=== PATIENT | female | born 1965 | race Caucasian/White ===

== ENCOUNTER → 2020-03-30 10:10 | Outpatient (BNVA) | payer MEDICAID, OTHER, SELFPAY | PROVIDERS: PCP Internal Medicine; Visit Provider Surgery ==

== ENCOUNTER → 2020-04-04 08:14 | Outpatient (BNVA) | payer MEDICAID, OTHER, SELFPAY | PROVIDERS: PCP Internal Medicine; Visit Provider Surgery | DX: Z76.89 Persons encountering health services in other specified circumstances (principal) ==

== ENCOUNTER 2020-04-06 07:56 | Outpatient (REF) | payer OTHER, SELFPAY ==
--- NOTE | 2020-04-06 08:07 | ECG_ITS ---
Test Reason : E66.01 Blood Pressure : / mmHG Vent. Rate : 086 BPM Atrial Rate : 086 BPM P-R Int : 116 ms QRS Dur : 068 ms QT Int : 364 ms P-R-T Axes : 061 034 037 degrees QTc Int : 435 ms Normal sinus rhythm Possible Left atrial enlargement Nonspecific ST and T wave abnormality Abnormal ECG No previous ECGs available Referred By: Jose Miguel Meredith Electronically Signed By:Yobani Smith
--- NOTE | 2020-04-06 08:29 | XR_ITS ---
EXAMINATION: XR CHEST CLINICAL INFORMATION: Bariatric service evaluation. E66.01 COMPARISON: Chest radiographs 12/31/2016 TECHNIQUE: 2 views of the chest were obtained. FINDINGS: The lungs are clear. The heart is normal in size. The vascularity is normal. The costophrenic sulci are clear. The hilar and mediastinal contours and bony structures are unremarkable. XR/XR chest 2V IMPRESSION: Unremarkable examination.
[2020-04-06 09:06] LABS: MANUAL DIFF FLAG NO
[2020-04-06 09:11] LABS: Basophils Absolute Auto 0.1 X10*3/uL (0.0-0.2); Basophils Percent Auto 0.6 % (0-2); Eosinophils Absolute Auto 0.4 X10*3/uL (0.0-0.4); Eosinophils Percent Auto 3.8 % (0-4); Hematocrit 43.1 % (37-47); Hemoglobin 14.2 g/dl (12.0-16.0); Imm Gran Abs Auto 0.04 X10*3/uL (0.00-0.03); Imm Gran Pct Auto 0.4 % (0.0-0.4); Lymphocytes Absolute Auto 2.2 X10*3/uL (1.2-4.9); Lymphocytes Percent Auto 20.8 % (20-40); Mean Corpuscular HGB Conc 32.9 g/dl (31.0-35.0); Mean Platelet Volume 9.9 fL (9.4-12.3); Monocytes Absolute Auto 0.6 X10*3/uL (0.1-1.2); Monocytes Percent Auto 5.6 % (2-11); Neutrophils Absolute Auto 7.3 X10*3/uL (2.0-8.3); Neutrophils Percent Auto 68.8 % (45-73); Platelet Count 545 X10*3/uL (160-400); Red Cell Distribution Width 11.6 % (11.0-16.0); White Blood Count 10.6 X10*3/uL (4.8-10.8)
[2020-04-06 09:37] LABS: Estimated Average Glucose 157 mg/dL; Hemoglobin A1c % 7.1 %
[2020-04-06 09:39] LABS: Alanine Aminotransferase 18 U/L (0-31); Albumin Level 4.5 g/dL (3.5-5.0); Alkaline Phosphatase 69 U/L (39-117); Anion Gap 13 (12-20); Aspartate Amino Transferase 17 U/L (5-31); Bilirubin Total 0.7 mg/dL (0.0-1.0); Blood Urea Nitrogen 13 mg/dL (9-16); Calcium 9.6 mg/dL (8.4-10.2); Carbon Dioxide 30 mmol/L (22-29); Chloride 103 mmol/L (96-108); Cholesterol 246 mg/dL; Estimated Glomerular Filt Rate > 60; Glucose Random 188 mg/dL (60-115); HDL Cholesterol 45 mg/dL; LDL Cholesterol Calculated 147 mg/dl; Potassium 4.7 mmol/l (3.3-5.1); Sodium 141 mmol/L (135-145); Total Protein 7.5 g/dL (6.5-8.0); Triglycerides 273 mg/dL
[2020-04-06 10:00] LABS: Ferritin 156 ng/mL (10-250); TSH reflex Free T4 0.73 mIU/mL (0.32-4.0); Vitamin D 25-OH Total 32.8 ng/mL (>30)
[2020-04-07 09:27] LABS: Insulin Level Total 8.7 uIU/mL
[2020-04-09 15:07] LABS: Folate 19.1 ng/mL (> or = 4.0); Vitamin B12 767 pg/mL (200-900)
[2020-04-09 17:43] LABS: Calcium (PTHI) 9.9 mg/dL (8.6-10.4); PTHI 23 pg/mL (14-64)
[2020-04-11 01:22] LABS: Zinc 70 mcg/dL (60-130)
[2020-04-11 13:07] LABS: Vitamin B1 14 nmol/L (8-30)
[2020-04-12 13:57] LABS: Vitamin A 69 mcg/dL (38-98)
== END 2020-04-06 07:57 | disposition home or self-care (01) ==
LOC: HO.LAB 07:56
PROVIDERS: PCP Internal Medicine; Visit Provider Surgery
DX: E66.01 Morbid (severe) obesity due to excess calories (principal); I10 Essential (primary) hypertension; E78.5 Hyperlipidemia, unspecified; K21.9 Gastro-esophageal reflux disease without esophagitis; K76.0 Fatty (change of) liver, not elsewhere classified
CPT/HCPCS: 36415; 71046; 80053; 80061; 82306; 82607; 82728; 82746; 83036; 83525; 83970; 84425; 84443; 84590; 84630; 85025; 86140; 93005

== ENCOUNTER 2020-04-18 08:00 | Outpatient (REF) | payer OTHER, SELFPAY ==
--- NOTE | ~2020-04-18 | US_ITS ---
EXAMINATION: US COMPLETE ABDOMEN WITH LIVER ELASTOGRAPHY CLINICAL INFORMATION: Obesity COMPARISON: None. TECHNIQUE: Real-time imaging of the abdominal viscera. Noninvasive ultrasound liver fibrosis assessment is performed using Fawad ElastPQ point quantification shear wave elastography (pSWE) with a 5 MHz transducer. Multiple elastography samples are obtained. FINDINGS: PANCREAS: Normal. ABDOMINAL AORTA: The proximal, middle, and distal aortic segments are normal in caliber. INFERIOR VENA CAVA: Visualized portions are normal. LIVER: Liver echotexture is increased. The liver demonstrates normal size, contour and echogenicity. No focal lesion or intrahepatic biliary duct dilatation. The right lobe measures 16 cm in length. The left lobe measures 11 cm in length. Portal flow is normal/hepatopedal Shear wave liver elastography median stiffness is 1.5 m/s (reference: normal median stiffness is 1.3 m/s or less). IQR/median stiffness to assess sampling precision is 0.17 (reference: optimal IQR/median stiffness is 0.15 or less). GALLBLADDER: There is a 6 x 4 x 5 mm rounded echogenic density with adjacent to the gallbladder wall suggestive of a polyp. The gallbladder is otherwise normal. No gallstones are seen. There is no pericholecystic fluid. COMMON BILE DUCT: Normal in caliber measuring 0.4 cm in diameter. RIGHT KIDNEY: There is an echogenic density in the upper pole suggestive of a stone measuring 4 x 5 mm.. No hydronephrosis. No renal focal parenchymal lesions. The kidney measures 10.4 cm in maximum dimension. LEFT KIDNEY: Normal. No hydronephrosis. No renal calculi or focal parenchymal lesions. The kidney measures 9.7 cm in maximum dimension. SPLEEN: Normal. The spleen measures 9.3 cm in maximum dimension. There is a 1.4 x 1.3 x 1.6 cm splenule. FREE FLUID: None. US/US abdomen comp w elastography IMPRESSION: 1. Impression: Echogenic liver. 5 mm gallbladder wall polyp. Probable 5 mm right upper pole renal stone. 2. Liver elastography: Liver stiffness is higher than normal however compensated advanced chronic liver disease is rule out.
--- NOTE | ~2020-04-18 | FL_ITS ---
PROCEDURE: XR GI SERIES CLINICAL INFORMATION: Morbid obesity due to excessive calories. COMPARISON: None TECHNIQUE: Routine upper GI air-contrast study was performed in upright and lying position. FINDINGS: Following oral administration of thick barium and effervescent granules there is normal progression of bolus from the oral cavity through the pharynx, esophagus into stomach without any evidence of obstruction, narrowing or stricture. The course, caliber and peristalsis of the stomach, duodenal bulb and the sweep is normal. There is a small hiatal hernia with moderate gastroesophageal reflux. The mucosal pattern of stomach and duodenum is normal. FLUOROSCOPY TIME: 2.4 minutes. DOSE AREA PRODUCT: 32.050 uGy-m2 (microgray-meter squared). FL/FL upper GI series IMPRESSION: Small hiatal hernia with moderate gastroesophageal reflux. Rest of the upper GI exam is unremarkable.
== END 2020-04-18 08:01 | disposition home or self-care (01) ==
LOC: HO.US 08:00
PROVIDERS: PCP Internal Medicine; Visit Provider Surgery
DX: Z01.818 Encounter for other preprocedural examination (principal); E66.01 Morbid (severe) obesity due to excess calories; K21.9 Gastro-esophageal reflux disease without esophagitis; E78.5 Hyperlipidemia, unspecified; I10 Essential (primary) hypertension; K76.0 Fatty (change of) liver, not elsewhere classified
CPT/HCPCS: 74240; 76705; 76981

== ENCOUNTER → 2020-04-20 08:26 | Outpatient (BNVA) | payer OTHER, SELFPAY | PROVIDERS: PCP Internal Medicine; Visit Provider Dietitian, Registered ==

== ENCOUNTER 2020-04-23 08:14 | Outpatient (REF) | payer OTHER, SELFPAY ==
[2020-04-23 09:04] LABS: Estimated Average Glucose 148 mg/dL; Hemoglobin A1c % 6.8 %
[2020-04-23 09:42] LABS: Alanine Aminotransferase 17 U/L (0-31); Albumin Level 4.2 g/dL (3.5-5.0); Alkaline Phosphatase 63 U/L (39-117); Anion Gap 12 (12-20); Aspartate Amino Transferase 14 U/L (5-31); Bilirubin Total 0.5 mg/dL (0.0-1.0); Blood Urea Nitrogen 7 mg/dL (9-16); Calcium 9.4 mg/dL (8.4-10.2); Carbon Dioxide 29 mmol/L (22-29); Chloride 106 mmol/L (96-108); Cholesterol 216 mg/dL; Estimated Glomerular Filt Rate > 60; Glucose Random 178 mg/dL (60-115); HDL Cholesterol 41 mg/dL; LDL Cholesterol Calculated 122 mg/dl; Potassium 4.7 mmol/L (3.3-5.1); Sodium 142 mmol/L (135-145); Triglycerides 266 mg/dL
== END 2020-04-23 08:15 | disposition home or self-care (01) ==
LOC: HO.LAB 08:14
PROVIDERS: PCP Internal Medicine; Visit Provider Internal Medicine
DX: E11.9 Type 2 diabetes mellitus without complications (principal); E78.2 Mixed hyperlipidemia; F32.89 Other specified depressive episodes; K08.89 Other specified disorders of teeth and supporting structures
CPT/HCPCS: 36415; 80053; 80061; 83036

== ENCOUNTER → 2020-05-02 08:23 | Outpatient (BNVA) | payer OTHER, SELFPAY | PROVIDERS: PCP Internal Medicine; Visit Provider Surgery ==

== ENCOUNTER → 2020-05-16 08:01 | Outpatient (REF) | payer OTHER, SELFPAY ==
--- NOTE | ~2020-05-16 | NM_ITS ---
Lexiscan Myocardial perfusion study Indication: Shortness of breath, diabetes, obesity, assess for coronary disease ischemia Technique: The patient was brought in for a Lexiscan perfusion study on 05/16/2020 and was injected 0.4 mg of Lexiscan intravenously. Within a minute of this injection 25 mCi of sestamibi was given intravenously. Images were obtained using the SPECT gamma camera interlaced with the gating device. Images were obtained in supine position. Resting perfusion study was performed on 05/17/2020. Patient was administered 25 mCi of sestamibi intravenously at rest. Images were then obtained in supine position. Total DLP 71mGy-cm. Images were processed with the software and compared side to side in short axis, horizontal long axis and vertical long axis views. Findings: Raw acquisition was reviewed. The stress perfusion study showed no significant perfusion abnormality. Both uncorrected as well as CT attenuation corrected images were reviewed. The gated study shows normal LV systolic function with calculated LVEF of 78%. LV cavity is normal in size. The gated study shows normal wall thickening and contraction of segments. Resting study shows no significant perfusion abnormality. Gating at rest reveals normal wall motion with ejection fraction at 72%. The findings are consistent with no reversible or fixed perfusion abnormality. NM/NM brissa perf SPECT rest & str Impression: 1. Myocardial perfusion imaging study shows normal myocardial perfusion. No evidence of any ischemia or infarction. 2. Gated LVEF is > 70% during stress and rest. 3. Transient ischemic dilatation not present. EKG component of the test reported separately.
--- NOTE | 2020-05-16 08:06 | CA_ITS ---
Acquisition Time: 2020-05-16 08:31:30 Total Exercise Time: 00:02:00 Test Indications: Dyspnea Medications: SEE CHART Protocol: LEXISCAN Max HR: 148 BPM 90% of Pred: 164 BPM Max BP: 124/076 mmHG Max Work Load: 1.0 METS Pharmacological stress test using Lexiscan while sitting and kicking her feet. Pt tolerated well. Denies any anginal sx. EKG without arrhythmias, non diagnostic for ischemia. Nuclear images to follow. Normotensive response to test . Test reviewed with Dr. Wilson Referred By: Jose Miguel Meredith Overread By: Neto Desir
== END ==
LOC: HO.CARD 08:01
PROVIDERS: Visit Provider Surgery
DX: Z01.818 Encounter for other preprocedural examination (principal); R06.02 Shortness of breath; R94.31 Abnormal electrocardiogram [ECG] [EKG]; I10 Essential (primary) hypertension
CPT/HCPCS: 78452; 93017; A9500; J0280; J2785

== ENCOUNTER → 2020-05-23 08:12 | Outpatient (BNVA) | payer OTHER, SELFPAY | PROVIDERS: PCP Internal Medicine; Visit Provider Surgery ==

== ENCOUNTER 2020-06-12 08:50 | Outpatient (REF) | payer OTHER, SELFPAY ==
[2020-06-13 15:01] LABS: H Pylori Breath Test NOT DETECTED (NOT DETECTED)
== END 2020-06-12 08:51 | disposition home or self-care (01) ==
LOC: HO.LNP 08:50
PROVIDERS: PCP Internal Medicine; Visit Provider Surgery
DX: Z11.0 Encounter for screening for intestinal infectious diseases (principal)
CPT/HCPCS: 83013; 99211

== ENCOUNTER → 2020-06-13 08:33 | Outpatient (REF) | payer OTHER, SELFPAY ==
--- NOTE | 2020-06-13 08:35 | CA_ITS ---
Transthoracic Echocardiogram Patient (Last, First, Middle): Morenita Navarrete V Gender: Female Date of : 1965 Age: 55 Procedure Date: 06/13/2020 Procedure Type: Transthoracic Echocardiogram Location: OP Height: 147.32 cm Weight: 68.95 kg BSA: 1.62 m2 Heart Rate: bpm BP: 100 / 58 mmHg Identification Printing Machine Setter: Kyaw MD: Jose Miguel Meredith MD Senior [employer] Network Engineer: Lupillo Rowan MD Symptoms: R94.31 - Abnormal electrocardiogram [ECG] [EKG] Study Quality: Fair ECG Rhythm: Sinus Conclusions: - 1. Normal LV systolic function with grade 1 diastolic dysfunction 2. Mild mitral and calcification normal cardiac valvular Doppler 3. Normal RV systolic pressure 4. No pericardial effusion Findings Left Ventricle Normal left ventricular size, thickness, and systolic function. The visually estimated ejection fraction is between 60-65%. Spectral Doppler is indicative of an impaired relaxation filling pattern. E/E prime ratio is <8, consistent with normal filling pressures. Evidence suggests grade I (mild) diastolic dysfunction. Right Ventricle Normal right ventricular cavity size and systolic function. Atria Both atria are normal in size. There is no evidence of interatrial shunt. Aortic Valve Normal aortic valve structure and function. There is no aortic valve stenosis. There is no aortic valve regurgitation. Mitral Valve There is mild mitral annular calcification. There is trace mitral valve regurgitation. There is no mitral valve stenosis. Pulmonic Valve The pulmonic valve was not well visualized. Tricuspid Valve Likely normal tricuspid valve structure and function. There is mild tricuspid valve regurgitation. The right ventricular systolic pressure is normal. The right ventricular systolic pressure is 28 mmHg. Normal right atrial pressure. There is no evidence of pulmonary hypertension. Great Vessels All visible segments of the aorta are normal in size. The pulmonary artery was not well visualized. Venous The inferior vena cava is normal in size and collapses greater than 50% with inspiration. Pericardium/Pleural There is no evidence of pericardial effusion. Prior Study Comparison No prior study available for comparison. Measurements 2D Linear Measurements RVIDd: 2.49 RVIDd Index: 1.54 IVSd: 0.93 0.6-0.9/0.6-1.0 cm LVIDd: 3.96 3.9-5.3/4.2-5.9 cm LVIDd Index: 2.44 2.4-3.2/2.2-3.1 cm/m2 LVIDs: 2.51 2.0-3.6 cm LVPWd: 0.91 0.7-1.1 cm Ao Root: 2.50 2.1-3.5 cm LA Diam: 3.00 2.7-3.8/3.0-4.0 cm LAIDs Index: 1.85 1.5-2.3 cm/m2 LV Mass: 138.96 67-162/88-224 g LV Mass Index: 85.78 43-95/49-115 g/m2 LVOT Diam: 2.00 3.0+(-)1.3 cm 2D Systolic Function EF 4C: 58.70 >55% EF 2C: 67.30 >55% EF BiP: 63.00 >55% Mitral Valve MV Pk E: 0.52 MV PK A: 0.53 MV Decel Time: 190.00 E/A: 1.00 E'Lateral: 12.00 E'Medial: 9.28 E/E' Med: 5.60 E/E' Lat: 4.30 Aortic Valve AoV Pk Juancarlos: 1.38 AoV Mn Juancarlos: 1.05 AoV VTI: 0.25 AoV Pk Grad: 8.00 Aov Mn Grad: 5.00 IKE Cont.VTI: 2.82 LVOT LVOT Pk Juancarlos: 1.15 LVOT Mn Juancarlos: 0.72 LVOT VTI: 0.22 LVOT Pk Grad: 5.00 LVOT Mn Grad: 2.00 LVOT Diam: 2.00 LVOT Area: 3.14 Diastolic Function MV Pk E: 0.52 MV Pk A: 0.53 E/A: 1.00 E'Medial: 9.28 E/E' Med: 5.60 E' Laterial: 12.00 E/E' Lat: 4.30 Tricuspid Valve TR Pk Juancarlos: 2.48 TR Pk Grad: 25.00 RA Press: 3.00 RVSP: 28.00 Great Vessels Aorta Ao Root-2D: 2.50 2.0-3.7 cm Ao Asc: 2.70 2.1-3.4 cm Ao Arch: 2.50 Updated in Other Vendor System with Status of Final Lupillo Rowan MD electronically signed on 06/13/2020 5:30:24 PM with status of Final
== END ==
LOC: HO.CARD 08:33
PROVIDERS: Visit Provider Surgery
DX: Z01.818 Encounter for other preprocedural examination (principal); R06.02 Shortness of breath; I10 Essential (primary) hypertension; R94.31 Abnormal electrocardiogram [ECG] [EKG]
CPT/HCPCS: 93306

== ENCOUNTER → 2020-06-15 08:09 | Outpatient (BNVA) | payer OTHER, SELFPAY | PROVIDERS: PCP Internal Medicine; Visit Provider Surgery ==

== ENCOUNTER → 2020-06-22 11:49 | Outpatient (BNVA) | payer OTHER, SELFPAY | PROVIDERS: PCP Internal Medicine; Visit Provider Physician Assistant ==

== ENCOUNTER → 2020-06-29 10:37 | Outpatient (BNVA) | payer OTHER, SELFPAY | PROVIDERS: PCP Internal Medicine; Visit Provider Physician Assistant ==

== ENCOUNTER → 2020-07-06 11:10 | Outpatient (BNVA) | payer OTHER, SELFPAY | PROVIDERS: PCP Internal Medicine; Visit Provider Physician Assistant ==

== ENCOUNTER → 2020-07-11 08:20 | Outpatient (BNVA) | payer OTHER, SELFPAY | PROVIDERS: PCP Internal Medicine; Visit Provider Surgery ==

== ENCOUNTER → 2020-07-13 10:24 | Outpatient (BNVA) | payer OTHER, SELFPAY | PROVIDERS: PCP Internal Medicine; Visit Provider Physician Assistant ==

== ENCOUNTER → 2020-07-19 08:09 | Outpatient (BNVA) | payer OTHER, SELFPAY | PROVIDERS: PCP Internal Medicine; Visit Provider Dietitian, Registered | DX: E66.9 Obesity, unspecified (principal); Z68.31 Body mass index [BMI] 31.0-31.9, adult | CPT/HCPCS: 97803 ==

== ENCOUNTER → 2020-07-20 09:03 | Outpatient (BNVA) | payer OTHER, SELFPAY | PROVIDERS: PCP Internal Medicine; Visit Provider Physician Assistant ==

== ENCOUNTER → 2020-07-27 09:14 | Outpatient (BNVA) | payer OTHER, SELFPAY | PROVIDERS: PCP Internal Medicine; Visit Provider Physician Assistant ==

== ENCOUNTER 2020-07-30 08:50 | Outpatient (REF) | payer OTHER, SELFPAY ==
[2020-07-30 10:30] LABS: Alanine Aminotransferase 14 U/L (0-31); Albumin Level 4.2 g/dL (3.5-5.0); Alkaline Phosphatase 65 U/L (39-117); Anion Gap 12 (12-20); Aspartate Amino Transferase 14 U/L (5-31); Bilirubin Total 0.5 mg/dL (0.0-1.0); Blood Urea Nitrogen 10 mg/dL (9-16); Calcium 9.8 mg/dL (8.4-10.2); Carbon Dioxide 28 mmol/L (22-29); Chloride 103 mmol/L (96-108); Cholesterol 208 mg/dL; Estimated Glomerular Filt Rate > 60; Glucose Random 143 mg/dL (60-115); HDL Cholesterol 47 mg/dL; LDL Cholesterol Calculated 121 mg/dl; Potassium 4.6 mmol/L (3.3-5.1); Sodium 138 mmol/L (135-145); Triglycerides 204 mg/dL
[2020-07-30 10:44] LABS: Estimated Average Glucose 140 mg/dL; Hemoglobin A1c % 6.5 %
[2020-07-30 11:02] LABS: Thyroid Stimulating Hormone 0.52 uIU/mL (0.32-4.0)
== END 2020-07-30 08:51 | disposition home or self-care (01) ==
LOC: HO.LAB 08:50
PROVIDERS: PCP Internal Medicine; Visit Provider Internal Medicine
DX: E11.9 Type 2 diabetes mellitus without complications (principal); E78.2 Mixed hyperlipidemia; F33.41 Major depressive disorder, recurrent, in partial remission; J45.909 Unspecified asthma, uncomplicated
CPT/HCPCS: 36415; 80053; 80061; 83036; 84443

== ENCOUNTER → 2020-08-01 08:27 | Outpatient (BNVA) | payer OTHER, SELFPAY | PROVIDERS: PCP Internal Medicine; Visit Provider Surgery ==

== ENCOUNTER → 2020-08-03 09:08 | Outpatient (BNVA) | payer OTHER, SELFPAY | PROVIDERS: PCP Internal Medicine; Visit Provider Physician Assistant ==

== ENCOUNTER → 2020-08-10 08:53 | Outpatient (BNVA) | payer OTHER, SELFPAY | PROVIDERS: PCP Internal Medicine; Visit Provider Physician Assistant ==

== ENCOUNTER → 2020-08-17 09:31 | Outpatient (BNVA) | payer OTHER, SELFPAY | PROVIDERS: PCP Internal Medicine; Visit Provider Physician Assistant ==

== ENCOUNTER → 2020-08-24 09:25 | Outpatient (BNVA) | payer OTHER, SELFPAY | PROVIDERS: PCP Internal Medicine; Visit Provider Physician Assistant ==

== ENCOUNTER → 2020-08-27 08:11 | Outpatient (BNVA) | payer OTHER, SELFPAY | PROVIDERS: PCP Internal Medicine; Visit Provider Dietitian, Registered | DX: E66.01 Morbid (severe) obesity due to excess calories (principal); Z68.31 Body mass index [BMI] 31.0-31.9, adult | CPT/HCPCS: 97803 ==

== ENCOUNTER → 2020-08-31 09:38 | Outpatient (BNVA) | payer OTHER, SELFPAY | PROVIDERS: PCP Internal Medicine; Visit Provider Physician Assistant ==

== ENCOUNTER → 2020-09-07 09:13 | Outpatient (BNVA) | payer OTHER, SELFPAY | PROVIDERS: PCP Internal Medicine; Visit Provider Physician Assistant ==

== ENCOUNTER → 2020-09-21 08:51 | Outpatient (BNVA) | payer OTHER, SELFPAY | PROVIDERS: PCP Internal Medicine; Visit Provider Physician Assistant ==

== ENCOUNTER → 2020-09-28 09:47 | Outpatient (BNVA) | payer OTHER, SELFPAY | PROVIDERS: PCP Internal Medicine; Visit Provider Physician Assistant ==

== ENCOUNTER → 2020-10-02 08:12 | Outpatient (BNVA) | payer OTHER, SELFPAY | PROVIDERS: PCP Internal Medicine; Visit Provider Dietitian, Registered ==

== ENCOUNTER → 2020-10-19 10:34 | Outpatient (BNVA) | payer OTHER, SELFPAY | PROVIDERS: PCP Internal Medicine; Visit Provider Physician Assistant ==

== ENCOUNTER → 2020-10-26 10:22 | Outpatient (BNVA) | payer OTHER, SELFPAY | PROVIDERS: PCP Internal Medicine; Visit Provider Surgery ==

== ENCOUNTER → 2020-11-07 09:04 | Outpatient (BNVA) | payer OTHER, SELFPAY | PROVIDERS: PCP Internal Medicine; Visit Provider Dietitian, Registered | DX: E66.9 Obesity, unspecified (principal); E11.8 Type 2 diabetes mellitus with unspecified complications | CPT/HCPCS: 97803 ==

== ENCOUNTER 2020-11-13 12:14 | Outpatient (REF) | payer OTHER, SELFPAY ==
[2020-11-13 13:36] LABS: MANUAL DIFF FLAG NO
[2020-11-13 13:44] LABS: Basophils Absolute Auto 0.1 X10*3/uL (0.0-0.2); Basophils Percent Auto 0.5 % (0-2); Eosinophils Absolute Auto 0.2 X10*3/uL (0.0-0.4); Eosinophils Percent Auto 2.2 % (0-4); Hematocrit 40.8 % (37-47); Hemoglobin 13.7 g/dl (12.0-16.0); Imm Gran Abs Auto 0.03 X10*3/uL (0.00-0.03); Imm Gran Pct Auto 0.3 % (0.0-0.4); Lymphocytes Absolute Auto 2.5 X10*3/uL (1.2-4.9); Lymphocytes Percent Auto 23.2 % (20-40); Mean Corpuscular HGB Conc 33.6 g/dl (31.0-35.0); Mean Corpuscular Hemoglobin 29.6 pg (27.0-33.0); Mean Corpuscular Volume 88.1 fL (80-98); Mean Platelet Volume 10.2 fL (9.4-12.3); Monocytes Absolute Auto 0.7 X10*3/uL (0.1-1.2); Monocytes Percent Auto 6.9 % (2-11); Neutrophils Absolute Auto 7.2 X10*3/uL (2.0-8.3); Neutrophils Percent Auto 66.9 % (45-73); Platelet Count 526 X10*3/uL (160-400); Red Blood Count 4.63 X10*6/uL (4.20-5.50); Red Cell Distribution Width 11.7 % (11.0-16.0); White Blood Count 10.8 X10*3/uL (4.8-10.8)
[2020-11-13 14:10] LABS: Estimated Average Glucose 140 mg/dL; Hemoglobin A1c % 6.5 %
[2020-11-13 14:34] LABS: Alanine Aminotransferase 12 U/L (0-31); Albumin Level 4.4 g/dL (3.5-5.0); Alkaline Phosphatase 68 U/L (39-117); Anion Gap 13 (12-20); Aspartate Amino Transferase 14 U/L (5-31); Bilirubin Total 0.3 mg/dL (0.0-1.0); Blood Urea Nitrogen 9 mg/dL (9-16); Calcium 10.1 mg/dL (8.4-10.2); Carbon Dioxide 27 mmol/L (22-29); Chloride 104 mmol/L (96-108); Cholesterol 206 mg/dL; Estimated Glomerular Filt Rate > 60; Glucose Random 114 mg/dL (60-115); HDL Cholesterol 46 mg/dL; LDL Cholesterol Calculated 115 mg/dl; Potassium 4.4 mmol/L (3.3-5.1); Sodium 140 mmol/L (135-145); Total Protein 7.4 g/dL (6.5-8.0); Triglycerides 228 mg/dL
[2020-11-13 14:49] LABS: Creatinine Urine 34.98 mg/dL; Microalbumin Urine < 5.0 mg/L
== END 2020-11-13 12:15 | disposition home or self-care (01) ==
LOC: HO.LAB 12:14
PROVIDERS: PCP Internal Medicine; Visit Provider Internal Medicine
DX: E11.9 Type 2 diabetes mellitus without complications (principal); E78.2 Mixed hyperlipidemia; F33.41 Major depressive disorder, recurrent, in partial remission; J45.902 Unspecified asthma with status asthmaticus
CPT/HCPCS: 36415; 80053; 80061; 82043; 83036; 85025

== ENCOUNTER → 2020-12-12 08:27 | Outpatient (BNVA) | payer OTHER, SELFPAY | PROVIDERS: PCP Internal Medicine; Visit Provider Dietitian, Registered | DX: E66.9 Obesity, unspecified (principal); Z68.31 Body mass index [BMI] 31.0-31.9, adult | CPT/HCPCS: 97803 ==

== ENCOUNTER → 2021-01-11 08:03 | Outpatient (BNVA) | payer OTHER, SELFPAY | PROVIDERS: PCP Internal Medicine; Referring Provider Surgery; Visit Provider Dietitian, Registered | DX: E66.9 Obesity, unspecified (principal); Z68.31 Body mass index [BMI] 31.0-31.9, adult | CPT/HCPCS: 97803 ==

== ENCOUNTER → 2021-02-15 08:00 | Outpatient (BNVA) | payer OTHER, SELFPAY | PROVIDERS: PCP Internal Medicine; Visit Provider Physician Assistant ==

== ENCOUNTER 2021-02-18 10:11 | Outpatient (REF) | payer OTHER, SELFPAY ==
[2021-02-18 11:34] LABS: Vitamin D 25-OH Total 32.1 ng/mL (>30)
[2021-02-18 13:05] LABS: Folate 16.1 ng/mL (> or = 4.0); Vitamin B12 535 pg/mL (200-900)
[2021-02-19 15:56] LABS: Calcium (PTHI) 10.1 mg/dL (8.6-10.4); PTHI 18 pg/mL (14-64)
[2021-02-21 13:31] LABS: Zinc 65 mcg/dL (60-130)
[2021-02-22 12:06] LABS: Vitamin B1 15 nmol/L (8-30)
[2021-02-26 13:25] LABS: Vitamin A 64 mcg/dL (38-98)
== END 2021-02-18 10:12 | disposition home or self-care (01) ==
LOC: HO.LAB 10:11
PROVIDERS: Visit Provider Physician Assistant
DX: E66.9 Obesity, unspecified (principal)
CPT/HCPCS: 36415; 82306; 82607; 82746; 83970; 84425; 84590; 84630

== ENCOUNTER 2021-03-07 13:41 | Outpatient (REF) | payer OTHER, SELFPAY ==
--- NOTE | ~2021-03-07 | XR_ITS ---
EXAMINATION: XR ELBOW, RIGHT CLINICAL INFORMATION: Right elbow pain. COMPARISON: None TECHNIQUE: AP, lateral, and oblique views of the right elbow. FINDINGS: A 3 mm well-corticated ossific body is projected over the anterior (olecranon fossa) portion of the joint space. This finding appears to reside over the ulnar aspect of the joint space on the AP view. No joint effusion is identified. The radial head is intact. A 1 mm well-corticated calcification/ossification is noted in the region of the ulnar aspect of the radial head and may represent dystrophic calcification within the annular ligament. No arthropathic changes identified. XR/XR elbow RT min 3V IMPRESSION: *Findings suspicious for a 3 mm well-corticated free intra-articular ossific body along the anterior ulnar aspect of the elbow joint. *1 mm dystrophic calcification within the ulnar aspect of the annular ligament suspicious for underlying on a annular ligament injury. *No joint effusion.
[2021-03-07 14:35] LABS: Estimated Average Glucose 157 mg/dL; Hemoglobin A1c % 7.1 %
[2021-03-07 14:36] LABS: Alanine Aminotransferase 18 U/L (0-31); Albumin Level 4.2 g/dL (3.5-5.0); Alkaline Phosphatase 69 U/L (39-117); Anion Gap 10 (12-20); Aspartate Amino Transferase 13 U/L (5-31); Bilirubin Total 0.2 mg/dL (0.0-1.0); Blood Urea Nitrogen 12 mg/dL (9-16); Calcium 9.9 mg/dL (8.4-10.2); Carbon Dioxide 28 mmol/L (22-29); Chloride 104 mmol/L (96-108); Estimated Glomerular Filt Rate > 60; Glucose Random 145 mg/dL (60-115); Potassium 4.4 mmol/L (3.3-5.1); Sodium 138 mmol/L (135-145); Total Protein 7.4 g/dL (6.5-8.0)
== END 2021-03-07 13:42 | disposition home or self-care (01) ==
LOC: HO.XRAY 13:41
PROVIDERS: PCP Internal Medicine; Visit Provider Internal Medicine
DX: Z00.00 Encounter for general adult medical examination without abnormal findings (principal); M25.521 Pain in right elbow; E11.9 Type 2 diabetes mellitus without complications; E78.2 Mixed hyperlipidemia; F33.42 Major depressive disorder, recurrent, in full remission; I10 Essential (primary) hypertension
CPT/HCPCS: 36415; 73080; 80053; 83036

== ENCOUNTER → 2021-03-11 13:22 | Outpatient (BNVA) | payer OTHER, SELFPAY | PROVIDERS: PCP Internal Medicine; Visit Provider Physician Assistant | DX: E66.9 Obesity, unspecified (principal); K44.9 Diaphragmatic hernia without obstruction or gangrene; E78.5 Hyperlipidemia, unspecified; I10 Essential (primary) hypertension; Z68.30 Body mass index [BMI] 30.0-30.9, adult | CPT/HCPCS: 99212 ==

== ENCOUNTER → 2021-03-21 08:09 | Outpatient (BNVA) | payer OTHER, SELFPAY | PROVIDERS: PCP Internal Medicine; Visit Provider Surgery ==

== ENCOUNTER → 2021-03-22 09:56 | Outpatient (BNVA) | payer OTHER, SELFPAY | PROVIDERS: PCP Internal Medicine; Referring Provider Internal Medicine; Visit Provider Physician Assistant Surgical ==

== ENCOUNTER → 2021-03-25 08:55 | Outpatient (BNVA) | payer OTHER, SELFPAY | PROVIDERS: PCP Internal Medicine; Referring Provider Physician Assistant; Visit Provider Dietitian, Registered | DX: E66.9 Obesity, unspecified (principal); Z68.31 Body mass index [BMI] 31.0-31.9, adult | CPT/HCPCS: 97803 ==

== ENCOUNTER → 2021-05-13 08:06 | Outpatient (BNVA) | payer OTHER, SELFPAY | PROVIDERS: PCP Internal Medicine; Visit Provider Dietitian, Registered ==

== ENCOUNTER → 2021-05-15 08:13 | Outpatient (BNVA) | payer OTHER, SELFPAY | PROVIDERS: PCP Internal Medicine; Visit Provider Dietitian, Registered | DX: E66.01 Morbid (severe) obesity due to excess calories (principal); Z68.32 Body mass index [BMI] 32.0-32.9, adult; E11.9 Type 2 diabetes mellitus without complications; Z71.3 Dietary counseling and surveillance | CPT/HCPCS: 97803 ==

== ENCOUNTER → 2021-05-21 08:12 | Outpatient (BNVA) | payer OTHER, SELFPAY | PROVIDERS: PCP Internal Medicine; Visit Provider Physician Assistant | DX: E66.9 Obesity, unspecified (principal); I10 Essential (primary) hypertension; E78.5 Hyperlipidemia, unspecified | CPT/HCPCS: Q3014 ==

== ENCOUNTER 2021-06-28 08:09 | Outpatient (REF) | payer OTHER, SELFPAY ==
[2021-06-28 08:29] LABS: MANUAL DIFF FLAG NO
[2021-06-28 09:12] LABS: Basophils Absolute Auto 0.1 X10*3/uL (0.0-0.2); Basophils Percent Auto 0.7 % (0-2); Eosinophils Absolute Auto 0.3 X10*3/uL (0.0-0.4); Eosinophils Percent Auto 2.8 % (0-4); Hematocrit 41.6 % (37.0-47.0); Imm Gran Abs Auto 0.02 X10*3/uL (0.00-0.03); Imm Gran Pct Auto 0.2 % (0.0-0.4); Lymphocytes Absolute Auto 2.3 X10*3/uL (1.2-4.9); Lymphocytes Percent Auto 22.5 % (20-40); Mean Corpuscular HGB Conc 33.7 g/dl (31.0-35.0); Mean Corpuscular Hemoglobin 29.2 pg (27.0-33.0); Mean Corpuscular Volume 86.8 fL (80.0-98.0); Mean Platelet Volume 10.3 fL (9.4-12.3); Monocytes Absolute Auto 0.7 X10*3/uL (0.1-1.2); Monocytes Percent Auto 6.9 % (2-11); Neutrophils Absolute Auto 6.8 x10*3/uL (2.0-8.3); Neutrophils Percent Auto 66.9 % (45-73); Platelet Count 485 X10*3/uL (160-400); Red Blood Count 4.79 X10*6/uL (4.20-5.50); Red Cell Distribution Width 11.7 % (11.0-16.0); White Blood Count 10.2 X10*3/uL (4.8-10.8)
[2021-06-28 09:33] LABS: Alanine Aminotransferase 11 U/L (0-31); Albumin Level 4.1 g/dL (3.5-5.0); Alkaline Phosphatase 77 U/L (39-117); Anion Gap 11 (12-20); Aspartate Amino Transferase 12 U/L (5-31); Bilirubin Total 0.4 mg/dL (0.0-1.0); Blood Urea Nitrogen 13 mg/dL (9-16); Carbon Dioxide 29 mmol/L (22-29); Chloride 101 mmol/L (96-108); Cholesterol 258 mg/dL; Estimated Glomerular Filt Rate > 60; Glucose Random 244 mg/dL (60-115); HDL Cholesterol 43 mg/dL; LDL Cholesterol Calculated 153 mg/dl; Potassium 5.1 mmol/L (3.3-5.1); Sodium 136 mmol/L (135-145); Total Protein 7.2 g/dL (6.5-8.0); Triglycerides 312 mg/dL
[2021-06-28 09:35] LABS: Microalbumin Urine < 5.0 mg/L
[2021-06-28 10:11] LABS: Estimated Average Glucose 194 mg/dL; Hemoglobin A1c % 8.4 %
== END 2021-06-28 08:10 | disposition home or self-care (01) ==
LOC: HO.LAB 08:09
PROVIDERS: PCP Internal Medicine; Visit Provider Internal Medicine
DX: E11.9 Type 2 diabetes mellitus without complications (principal); E78.2 Mixed hyperlipidemia; I10 Essential (primary) hypertension
CPT/HCPCS: 36415; 80053; 80061; 82043; 83036; 85025

== ENCOUNTER → 2021-07-19 08:13 | Outpatient (BNVA) | payer OTHER, SELFPAY | PROVIDERS: PCP Internal Medicine; Referring Provider Physician Assistant; Visit Provider Dietitian, Registered | DX: E66.9 Obesity, unspecified (principal); Z68.31 Body mass index [BMI] 31.0-31.9, adult | CPT/HCPCS: 97803 ==

== ENCOUNTER 2021-11-13 08:42 | Outpatient (REF) | payer OTHER, SELFPAY ==
[2021-11-13 08:56] LABS: MANUAL DIFF FLAG NO
[2021-11-13 09:06] LABS: Basophils Absolute Auto 0.1 X10*3/uL (0.0-0.2); Basophils Percent Auto 0.7 % (0-2); Eosinophils Absolute Auto 0.2 X10*3/uL (0.0-0.4); Eosinophils Percent Auto 2.2 % (0-4); Hematocrit 40.1 % (37.0-47.0); Hemoglobin 13.5 g/dl (12.0-16.0); Imm Gran Abs Auto 0.04 X10*3/uL (0.00-0.03); Imm Gran Pct Auto 0.5 % (0.0-0.4); Lymphocytes Absolute Auto 2.1 X10*3/uL (1.2-4.9); Lymphocytes Percent Auto 23.8 % (20-40); Mean Corpuscular HGB Conc 33.7 g/dl (31.0-35.0); Mean Corpuscular Hemoglobin 29.4 pg (27.0-33.0); Mean Corpuscular Volume 87.4 fL (80.0-98.0); Mean Platelet Volume 9.3 fL (9.4-12.3); Monocytes Absolute Auto 0.5 X10*3/uL (0.1-1.2); Monocytes Percent Auto 5.7 % (2-11); Neutrophils Absolute Auto 5.8 x10*3/uL (2.0-8.3); Neutrophils Percent Auto 67.1 % (45-73); Platelet Count 522 X10*3/uL (160-400); Red Blood Count 4.59 X10*6/uL (4.20-5.50); Red Cell Distribution Width 11.5 % (11.0-16.0); White Blood Count 8.7 X10*3/uL (4.8-10.8)
[2021-11-13 09:19] LABS: Estimated Average Glucose 197 mg/dL; Hemoglobin A1c % 8.5 %
[2021-11-13 09:36] LABS: Alanine Aminotransferase 19 U/L (0-31); Alkaline Phosphatase 74 U/L (39-117); Anion Gap 14 (12-20); Aspartate Amino Transferase 17 U/L (5-31); Bilirubin Total 0.3 mg/dL (0.0-1.0); Blood Urea Nitrogen 9 mg/dL (9-16); Calcium 9.2 mg/dL (8.4-10.2); Carbon Dioxide 27 mmol/L (22-29); Chloride 103 mmol/L (96-108); Cholesterol 257 mg/dL; Estimated Glomerular Filt Rate > 60; Glucose Random 199 mg/dL (60-115); HDL Cholesterol 45 mg/dL; LDL Cholesterol Calculated 152 mg/dl; Sodium 139 mmol/L (135-145); Total Protein 6.9 g/dL (6.5-8.0); Triglycerides 302 mg/dL
[2021-11-13 09:59] LABS: Thyroid Stimulating Hormone 0.84 uIU/mL (0.32-4.0)
[2021-11-13 10:09] LABS: Vitamin B12 407 pg/mL (200-900)
[2021-11-13 10:47] LABS: Creatinine Urine 97.05 mg/dL; Microalbumin Urine < 5.0 mg/L
== END 2021-11-13 08:43 | disposition home or self-care (01) ==
LOC: HO.LAB 08:42
PROVIDERS: PCP Internal Medicine; Visit Provider Internal Medicine
DX: E11.65 Type 2 diabetes mellitus with hyperglycemia (principal); E78.00 Pure hypercholesterolemia, unspecified; I10 Essential (primary) hypertension; M54.50 Low back pain, unspecified
CPT/HCPCS: 36415; 80053; 80061; 82043; 82607; 83036; 84443; 85025

== ENCOUNTER 2021-11-13 11:03 | Emergency (ER) | payer OTHER, SELFPAY ==
--- NOTE | ~2021-11-13 | XR_ITS ---
EXAMINATION: XR CHEST CLINICAL INFORMATION: Dyspnea and chest pressure COMPARISON: None TECHNIQUE: 2 views of the chest were obtained. FINDINGS: No significant abnormality is noted involving the heart, lungs, mediastinum, bony thorax or soft tissues. XR/XR chest 2V IMPRESSION: Unremarkable examination.
--- NOTE | ~2021-11-13 | CT_ITS ---
EXAMINATION: CT head/brain wo IV con CLINICAL INFORMATION: Reason for Exam headache COMPARISON: None. TECHNIQUE: Contiguous axial imaging was performed from the skull base to vertex without intravenous contrast. Sagittal and coronal reformatted images were obtained. This CT examination was performed using dose optimization techniques as appropriate, variously including the following: * Automated exposure control * Adjustment of mA and/or kV according to patient size (this includes techniques or standardized protocols for targeted exams where dose is matched to indication/reason for exam; i.e. extremities or head) Use of iterative reconstruction technique DLP: 631 mGy-cm FINDINGS: No acute osseous or soft tissue abnormality. 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 Degenerative changes of the right greater than left temporomandibular joints. The mastoid air cells and visualized portions of the paranasal sinuses are well aerated. There is no evidence of acute intracranial hemorrhage or territorial infarction. Bilateral basal ganglia mineralization. No abnormal mass effect or midline shift is seen. Lang to white matter differentiation is well preserved. No extra-axial fluid collections are identified. Partially empty sella. No hydrocephalus. No significant volume loss. There is no abnormal attenuation within the brain parenchyma. CT/CT head/brain wo IV con IMPRESSION: No acute intracranial abnormality including hemorrhage, mass effect, hydrocephalus, or acute territorial edematous infarction.
[2021-11-13 11:10] VITALS: BP 150/80; PULSE 94
[2021-11-13 12:00] VITALS: BP 135/81; PULSE 78; RESP 16; TEMP 36.2; O2SAT 99; BMI 31.7
--- NOTE | 2021-11-13 12:03 | ECG_ITS ---
Test Reason : chest pressure Blood Pressure : / mmHG Vent. Rate : 079 BPM Atrial Rate : 079 BPM P-R Int : 126 ms QRS Dur : 070 ms QT Int : 356 ms P-R-T Axes : 035 004 021 degrees QTc Int : 408 ms Normal sinus rhythm Nonspecific ST abnormality Abnormal ECG When compared with ECG of 06-APR-2020 08:25, No significant change was found Referred By: Generic ED Physician Electronically Signed By:YARIEL FAY
[2021-11-13 12:24] LABS: MANUAL DIFF FLAG NO
[2021-11-13 12:28] LABS: Basophils Absolute Auto 0.1 X10*3/uL (0.0-0.2); Basophils Percent Auto 0.5 % (0-2); Eosinophils Absolute Auto 0.2 X10*3/uL (0.0-0.4); Eosinophils Percent Auto 1.6 % (0-4); Hematocrit 40.1 % (37.0-47.0); Hemoglobin 13.5 g/dl (12.0-16.0); Imm Gran Abs Auto 0.03 X10*3/uL (0.00-0.03); Imm Gran Pct Auto 0.3 % (0.0-0.4); Lymphocytes Absolute Auto 2.4 X10*3/uL (1.2-4.9); Lymphocytes Percent Auto 21.3 % (20-40); Mean Corpuscular HGB Conc 33.7 g/dl (31.0-35.0); Mean Corpuscular Hemoglobin 29.4 pg (27.0-33.0); Mean Corpuscular Volume 87.4 fL (80.0-98.0); Mean Platelet Volume 9.4 fL (9.4-12.3); Monocytes Absolute Auto 0.7 X10*3/uL (0.1-1.2); Monocytes Percent Auto 6.5 % (2-11); Neutrophils Absolute Auto 7.9 x10*3/uL (2.0-8.3); Neutrophils Percent Auto 69.8 % (45-73); Platelet Count 524 X10*3/uL (160-400); Red Blood Count 4.59 X10*6/uL (4.20-5.50); Red Cell Distribution Width 11.6 % (11.0-16.0); White Blood Count 11.3 X10*3/uL (4.8-10.8)
[2021-11-13 12:46] LABS: COVID-19 Test Negative (Negative)
[2021-11-13 12:50] LABS: Anion Gap 16 (12-20); Blood Urea Nitrogen 9 mg/dL (9-16); Calcium 9.5 mg/dL (8.4-10.2); Carbon Dioxide 27 mmol/L (22-29); Chloride 102 mmol/L (96-108); Creatinine Clr Calc Pharmacy 67.2; Estimated Glomerular Filt Rate > 60; Glucose Random 185 mg/dL (60-115); Potassium 4.7 mmol/L (3.3-5.1); Sodium 140 mmol/L (135-145)
[2021-11-13 12:56] LABS: Troponin-I High Sensitivity < 3.5 ng/L (<3.5-17.0)
--- NOTE | 2021-11-13 18:18 | ED.GENADULT ---
HPI - General Adult General Chief complaint: General Medical Stated complaint: DIFF BREATH X'S 20M,ANDERSON,84% RA, 99% ON 3LPM PER EMS Time Seen by Provider: 11/13/21 18:17 Source: patient and EMS Mode of arrival: EMS Limitations: no limitations History of Present Illness HPI narrative: 56-year-old female Greek-speaking came in by ambulance for evaluation of headache and shortness of breath. Patient had an appointment with her doctor today for general physical, has been feeling anxious and nervous for the past few weeks due to stressful life, patient filled a sudden onset of headache this morning started around 11:00 o'clock in the morning followed by difficulty breathing and feeling anxious, patient also felt chest tightness, had her to call EMS for further evaluation in the emergency department, in the ED patient now feels better back to normal baseline patient is asking for medication to help her anxiety. Headache is much better than this morning, no CP, no SOB, no sickness symptoms, no sick contact, no coughing, no history of smoking or lung disease. As per EMS patient had O2 sat of 84% on room air 1 time breathing during transportation that improved to 99% on supplemental oxygen, no hypoxia was noted in the ED Related Data Home Medications Medication Instructions Recorded Confirmed amlodipine 2.5 mg-atorvastatin 10 1 tab PO DAILY 04/04/20 03/11/21 mg tablet atorvastatin 80 mg tablet 80 mg PO DAILY 04/04/20 03/11/21 glimepiride 2 mg tablet 2 mg PO DAILY 04/04/20 03/11/21 ibuprofen 600 mg tablet 600 mg PO Q8H PRN 04/04/20 03/11/21 lisinopril 10 mg tablet 10 mg PO DAILY 04/04/20 03/11/21 metformin 1,000 mg tablet 1,000 mg PO DAILY 04/04/20 03/11/21 montelukast 10 mg tablet 10 mg PO DAILY 04/04/20 03/11/21 omeprazole 20 mg capsule,delayed 20 mg PO DAILY 04/04/20 03/11/21 release rosuvastatin 40 mg tablet 40 mg PO DAILY 04/04/20 03/11/21 sertraline 50 mg tablet 50 mg PO DAILY 04/04/20 03/11/21 albuterol sulfate 90 mcg/actuation 2 puff inhalation QID 02/15/21 03/11/21 aerosol inhaler (ProAir HFA) multivitamin 1 tab PO DAILY 02/15/21 03/11/21 Previous Rx's Medication Instructions Recorded blood pressure monitor #1 ea 07/11/20 Allergies Allergy/AdvReac Type Severity Reaction Status Date / Time seafood Allergy Severe Anaphylaxis Verified 03/11/21 13:27 Penicillins [PENICILLINS] Allergy Unknown UNKNOWN Verified 03/11/21 13:27 Review of Systems Review of Systems: All other systems are reviewed and are negative Constitutional: Reports as per HPI and Reports no additional constitutional complaints Eyes: Reports as per HPI and Reports no additional eye complaints Reports system reviewed and no additional complaints, except as documented Cardiovascular: Reports as per HPI and Reports no additional cardiovascular complaints Respiratory: Reports as per HPI and Reports no additional respiratory complaints Gastrointestinal: Reports as per HPI and Reports no additional gastrointestinal complaints Genitourinary: Reports no additional female genitourinary complaints Musculoskeletal: Reports no additional musculoskeletal complaints Skin/Breast: Reports system reviewed and no additional complaints, except as docu Psychiatric: Reports no additional psychiatric complaints Endocrine: Reports no additional endocrine complaints Hematologic/Lymphatic: Reports no additional hematologic/lymphatic complaints Allergic/Immunologic: Reports no additional allergic/immunologic complaints Reports system reviewed and no additional complaints, except as documented and Reports Abnormal speech present [facility] Past Medical History Medical History Asthma Depression DJD (degenerative joint disease) GERD (gastroesophageal reflux disease) Hyperlipidemia Hypertension Morbid obesity Non-insulin dependent diabetes mellitus Steatosis, liver Surgical History History of surgery of head Hx of hysterectomy Family History Family History Mother Cancer Father Asthma Arthritis Mental problems Sister No problems noted. Sister No problems noted. Sister Diabetes Asthma Sister Morbidly obese Brother No problems noted. Brother Diabetes Hypertension Son No problems noted. Son No problems noted. Daughter No problems noted. Daughter No problems noted. Social History Social History Alcohol intake: never Patient Tobacco Use Status: Never used Tobacco Advance Directives: No Advance Directives Information Provided: Yes Physical Exam ED Vital Signs: Vital Signs - 24 hr 11/13/21 12:00 11/13/21 19:14 Temperature 97.2 F 98.3 F Pulse Rate 78 83 Respiratory Rate 16 16 Blood Pressure 135/81 106/74 Pulse Oximetry 99 98 Oxygen Delivery Method Room Air Room Air BMI result Body Mass Index 31.7 Vital signs have been reviewed as appeared to be correct. Blood pressure normal. Heart rate normal. Respiration rate normal. Temperature normal. Oxygen saturation normal. Appearance: Alert. Oriented X3. No acute distress. Head: Normal external exam. Normocephalic. Atraumatic. No Gonzalez signs noted. No raccoon eyes noted Eyes: PERRLA. EOMI. Conjunctiva and sclera normal. Eyelids normal. ENT: TM's Normal. Pharynx normal. Uvula midline. Moist mucous membranes. No trismus noted. No drooling noted. No muffled voice noted. Neck: Normal inspection. Neck supple. FROM. No adenopathy. Thyroid Normal. No meningeal signs. No neck mass noted. CVS: Normal heart rate and rhythm. Heart sound normal. No murmurs noted. Pulses normal throughout. Respiratory: No respiratory distress. Painless inspiration. Breath sounds normal. No wheezes/rales/rhonchi noted. Chest nontender. No accessory muscle usage noted or decreased air movement noted. Abdomen: Soft and nontender. Bowel sounds normal in all 4 quadrants. No distention noted. No organomegaly noted. No visible injury noted. Back: No CVA tenderness. Full range of motion noted. Skin: Skin warm and dry. Normal skin color. Normal skin turgor. No rashes/lesions/lacerations noted. Extremities: No lower extremity edema. Extremities exhibit normal range of motion. Extremities nontender. Neuro: Oriented X 3. Cranial nerve exam: II-XII are grossly intact No motor deficit. No sensory deficit. Reflexes normal. Patient Orientation: Person, Place, Time and Situation Level of Consciousness: Awake, Appropriate and Alert Patient Behavior: Appropriate, Guarded, Cooperative and Anxious Mood Description: Constricted, Blunted and Apprehensive Affect Description: Constricted, Blunted and Apprehensive Patient Cognition Impaired: No Ability to Follow Directions: Excellent Speech Pattern: Clear, Appropriate and Spontaneous Speech Memory Description: Intact, Immediate Intact and Short Term Intact Hallucinations: None Delusions: Not Present Thought Process: Intact Thought Content: positive for Intact, positive for Logical, denies Suicidal Ideation and denies Homicidal Ideation. Depressive Symptoms: Not present Judgement: Good Judgement and Insight: Intact Course Course Course Narrative: 56-year-old female came in for evaluation of sudden onset headache and difficulty breathing, symptoms has improved in the emergency department, patient has unremarkable blood workup, chest x-ray, EKG. Patient admitted that she has been going through stressful life but no depression or SI or HI patient improved with 1 mg of Ativan given in the ED. VSS, unremarkable physical and mental exam. Will reassure and discharge to follow-up with her PCP. Medical Decision Making Lab Data Lab results reviewed: Yes I reviewed the patient's lab results. Result diagrams: 11/13/21 12:17 11/13/21 12:16 Labs: Lab Results 11/13/21 11/13/21 11/13/21 Range/Units 12:16 12:17 12:17 WBC 11.3 H (4.8-10.8) X10*3/uL RBC 4.59 (4.20-5.50) X10*6/uL Hgb 13.5 (12.0-16.0) g/dl Hct 40.1 (37.0-47.0) % MCV 87.4 (80.0-98.0) fL MCH 29.4 (27.0-33.0) pg MCHC 33.7 (31.0-35.0) g/dl RDW 11.6 (11.0-16.0) % Plt Count 524 H (160-400) X10*3/uL MPV 9.4 (9.4-12.3) fL Immature Gran % (Auto) 0.3 (0.0-0.4) % Neut % (Auto) 69.8 (45-73) % Lymph % (Auto) 21.3 (20-40) % Throckmorton % (Auto) 6.5 (2-11) % Eos % (Auto) 1.6 (0-4) % Baso % (Auto) 0.5 (0-2) % Lymph # (Auto) 2.4 (1.2-4.9) X10*3/uL Throckmorton # (Auto) 0.7 (0.1-1.2) X10*3/uL Eos # (Auto) 0.2 (0.0-0.4) X10*3/uL Baso # (Auto) 0.1 (0.0-0.2) X10*3/uL Abs Immat Gran (auto) 0.03 (0.00-0.03) X10*3/uL Absolute Neuts (auto) 7.9 (2.0-8.3) x10*3/uL Absolute Nucleated RBC 0.000 (0.0-0.012) X10*3/uL Nucleated RBC % (auto) 0.0 (0.0-0.2) /100WBC D-Dimer High Sensitivty NG/ML Sodium 140 (135-145) mmol/L Potassium 4.7 (3.3-5.1) mmol/L Chloride 102 (96-108) mmol/L Carbon Dioxide 27 (22-29) mmol/L Anion Gap 16 (12-20) BUN 9 (9-16) mg/dL Creatinine 0.75 (0.5-1.4) mg/dL Estim Creat Clear Calc 67.2 Estimated GFR > 60 Random Glucose 185 H (60-115) mg/dL Calcium 9.5 (8.4-10.2) mg/dL Troponin I High Sens (<3.5-17.0) ng/L B-Natriuretic Peptide (<100) pg/mL COVID-19 ([facility]OBERTO) Negative (Negative) COVID-19 Clin Com See Note 11/13/21 11/13/21 11/13/21 Range/Units 12:17 19:19 19:19 WBC (4.8-10.8) X10*3/uL RBC (4.20-5.50) X10*6/uL Hgb (12.0-16.0) g/dl Hct (37.0-47.0) % MCV (80.0-98.0) fL MCH (27.0-33.0) pg MCHC (31.0-35.0) g/dl RDW (11.0-16.0) % Plt Count (160-400) X10*3/uL MPV (9.4-12.3) fL Immature Gran % (Auto) (0.0-0.4) % Neut % (Auto) (45-73) % Lymph % (Auto) (20-40) % Throckmorton % (Auto) (2-11) % Eos % (Auto) (0-4) % Baso % (Auto) (0-2) % Lymph # (Auto) (1.2-4.9) X10*3/uL Throckmorton # (Auto) (0.1-1.2) X10*3/uL Eos # (Auto) (0.0-0.4) X10*3/uL Baso # (Auto) (0.0-0.2) X10*3/uL Abs Immat Gran (auto) (0.00-0.03) X10*3/uL Absolute Neuts (auto) (2.0-8.3) x10*3/uL Absolute Nucleated RBC (0.0-0.012) X10*3/uL Nucleated RBC % (auto) (0.0-0.2) /100WBC D-Dimer High Sensitivty < 150 NG/ML Sodium (135-145) mmol/L Potassium (3.3-5.1) mmol/L Chloride (96-108) mmol/L Carbon Dioxide (22-29) mmol/L Anion Gap (12-20) BUN (9-16) mg/dL Creatinine (0.5-1.4) mg/dL Estim Creat Clear Calc Estimated GFR Random Glucose (60-115) mg/dL Calcium (8.4-10.2) mg/dL Troponin I High Sens < 3.5 < 3.5 (<3.5-17.0) ng/L B-Natriuretic Peptide 29 (<100) pg/mL COVID-19 ([facility]ERTO) (Negative) COVID-19 Clin Com Imaging Data CT scan - head: Attestation: I personally reviewed and interpreted this imaging study as follows: Radiologist's impression: No acute intracranial pathology. Chest x-ray: Attestation: I personally reviewed and interpreted this imaging study as follows: Radiologist's impression: No acute pathology. ECG Data Attestation: I personally reviewed and interpreted this ECG as follows: Interpretation: Normal sinus rhythm at 79 beats per minutes, normal intervals, nonspecific ST-TT changes, no change from previous EKG. Discharge Plan Discharge Clinical Impression: Anxiety Patient Disposition: Home, Self-Care Instructions: Anxiety (ED) Prescriptions: No Action metformin 1,000 mg tablet 1,000 mg PO DAILY rosuvastatin 40 mg tablet 40 mg PO DAILY sertraline 50 mg tablet 50 mg PO DAILY atorvastatin 80 mg tablet 80 mg PO DAILY montelukast 10 mg tablet 10 mg PO DAILY lisinopril 10 mg tablet 10 mg PO DAILY glimepiride 2 mg tablet 2 mg PO DAILY omeprazole 20 mg capsule,delayed release(DR/EC) 20 mg PO DAILY amlodipine-atorvastatin 2.5-10 mg tablet 1 tab PO DAILY ibuprofen 600 mg tablet 600 mg PO Q8H PRN (DME) blood pressure monitor Kit See Rx Instructions .ROUTE .MEDSUPPLY Qty: 1 0RF Rx Instructions: As directed albuterol sulfate [ProAir HFA] 90 mcg/actuation HFA aerosol inhaler 2 puff inhalation QID multivitamin Tablet 1 tab PO DAILY Referrals: Su Ambriz MD [Primary Care Provider] -
[2021-11-13 19:14] VITALS: BP 106/74; PULSE 83; RESP 16; TEMP 36.8; O2SAT 98
[2021-11-13] MEDS: LORazepam 1 MG TABLET PO (19:32)
[2021-11-13 19:36] LABS: D Dimer High Sensitivity < 150 NG/ML
[2021-11-13 19:47] LABS: B Type Natriuretic Peptide 29 pg/mL (<100); Troponin-I High Sensitivity < 3.5 ng/L (<3.5-17.0)
== END 2021-11-13 21:34 | disposition home or self-care (01) ==
PROVIDERS: Emergency Provider Emergency Medicine; PCP Internal Medicine
DX: F41.9 Anxiety disorder, unspecified (principal); R06.02 Shortness of breath; Z20.822 Contact with and (suspected) exposure to COVID-19; I10 Essential (primary) hypertension; E11.9 Type 2 diabetes mellitus without complications; E78.5 Hyperlipidemia, unspecified; J45.909 Unspecified asthma, uncomplicated; Z79.02 Long term (current) use of antithrombotics/antiplatelets; Z79.84 Long term (current) use of oral hypoglycemic drugs; Z79.899 Other long term (current) drug therapy
CPT/HCPCS: 36415; 70450; 71046; 80048; 83880; 84484; 85025; 85379; 87635; 93005; 99284

== ENCOUNTER 2022-06-30 08:51 | Outpatient (REF) | payer OTHER, SELFPAY ==
[2022-06-30 10:10] LABS: Estimated Average Glucose 131 mg/dL; Hemoglobin A1c % 6.2 %
[2022-06-30 10:45] LABS: Alanine Aminotransferase 13 U/L (0-31); Alkaline Phosphatase 69 U/L (39-117); Anion Gap 12 (12-20); Aspartate Amino Transferase 14 U/L (5-31); Bilirubin Total 0.5 mg/dL (0.0-1.0); Blood Urea Nitrogen 7 mg/dL (9-16); Calcium 9.4 mg/dL (8.4-10.2); Carbon Dioxide 28 mmol/L (22-29); Chloride 108 mmol/L (96-108); Cholesterol 227 mg/dL; Estimated Glomerular Filt Rate > 60; Glucose Random 129 mg/dL (60-115); HDL Cholesterol 42 mg/dL; LDL Cholesterol Calculated 133 mg/dl; Potassium 4.5 mmol/L (3.3-5.1); Sodium 143 mmol/L (135-145); Total Protein 6.6 g/dL (6.5-8.0); Triglycerides 263 mg/dL
== END 2022-06-30 08:52 | disposition home or self-care (01) ==
LOC: HO.LAB 08:51
PROVIDERS: PCP Internal Medicine; Visit Provider Internal Medicine
DX: E11.65 Type 2 diabetes mellitus with hyperglycemia (principal); E78.00 Pure hypercholesterolemia, unspecified; F32.9 Major depressive disorder, single episode, unspecified; I10 Essential (primary) hypertension
CPT/HCPCS: 36415; 80053; 80061; 83036

== ENCOUNTER 2022-09-29 10:48 | Outpatient (REF) | payer OTHER, SELFPAY ==
[2022-09-29 11:09] LABS: MANUAL DIFF FLAG NO
[2022-09-29 11:54] LABS: Basophils Absolute Auto 0.1 X10*3/uL (0.0-0.2); Basophils Percent Auto 0.8 % (0-2); Eosinophils Absolute Auto 0.2 X10*3/uL (0.0-0.4); Eosinophils Percent Auto 2.2 % (0-4); Hematocrit 43.7 % (37.0-47.0); Hemoglobin 14.3 g/dl (12.0-16.0); Imm Gran Abs Auto 0.02 X10*3/uL (0.00-0.03); Imm Gran Pct Auto 0.2 % (0.0-0.4); Lymphocytes Absolute Auto 2.8 X10*3/uL (1.2-4.9); Lymphocytes Percent Auto 27.7 % (20-40); Mean Corpuscular HGB Conc 32.7 g/dl (31.0-35.0); Mean Corpuscular Hemoglobin 28.7 pg (27.0-33.0); Mean Corpuscular Volume 87.8 fL (80.0-98.0); Mean Platelet Volume 9.9 fL (9.4-12.3); Monocytes Absolute Auto 0.7 X10*3/uL (0.1-1.2); Monocytes Percent Auto 7.3 % (2-11); Neutrophils Absolute Auto 6.2 x10*3/uL (2.0-8.3); Neutrophils Percent Auto 61.8 % (45-73); Platelet Count 554 X10*3/uL (160-400); Red Blood Count 4.98 X10*6/uL (4.20-5.50)
[2022-09-29 12:01] LABS: Estimated Average Glucose 180 mg/dL; Hemoglobin A1c % 7.9 %
[2022-09-29 12:41] LABS: Alanine Aminotransferase 9 U/L (0-31); Albumin Level 4.2 g/dL (3.5-5.0); Alkaline Phosphatase 97 U/L (39-117); Anion Gap 12 (12-20); Aspartate Amino Transferase 9 U/L (5-31); Bilirubin Total 0.3 mg/dL (0.0-1.0); Blood Urea Nitrogen 10 mg/dL (9-16); Calcium 9.7 mg/dL (8.4-10.2); Carbon Dioxide 28 mmol/L (22-29); Chloride 102 mmol/L (96-108); Estimated Glomerular Filt Rate > 60; Glucose Random 248 mg/dL (60-115); Potassium 3.9 mmol/L (3.3-5.1); Sodium 138 mmol/L (135-145); Total Protein 7.5 g/dL (6.5-8.0)
== END 2022-09-29 10:49 | disposition home or self-care (01) ==
LOC: HO.LAB 10:48
PROVIDERS: PCP Internal Medicine; Visit Provider Internal Medicine
DX: E11.65 Type 2 diabetes mellitus with hyperglycemia (principal); E78.00 Pure hypercholesterolemia, unspecified; I10 Essential (primary) hypertension
CPT/HCPCS: 36415; 80053; 83036; 85025

== ENCOUNTER 2022-11-20 16:06 | Emergency (ER) | payer OTHER, SELFPAY ==
--- NOTE | ~2022-11-20 | XR_ITS ---
CLINICAL INFORMATION: Reason for Exam pain s/p fall COMPARISON: None TECHNIQUE: 4 views of the knee FINDINGS: No acute fracture or dislocation. Advanced degenerative changes of the knee with complete loss of medial compartment joint space and tricompartmental osteophytes. 7 mm osseous fragment within the tibiofemoral joint space may reflect a loose body. Trace suprapatellar joint effusion. Soft tissues are unremarkable. XR/XR knee RT 3V IMPRESSION: * No acute osseous abnormality. * Advanced degenerative changes of the knee. 7 mm osseous fragment within the tibiofemoral joint space may reflect a loose body. * Trace suprapatellar joint effusion.
[2022-11-20 16:16] VITALS: BP 134/81; BP 186/96; PULSE 124; PULSE 88; RESP 16; TEMP 37.4; O2SAT 97; O2SAT 99; BMI 31.1
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
== END 2022-11-20 19:56 | disposition home or self-care (01) ==
PROVIDERS: Emergency Provider Student in an Organized Health Care Education/Training Program; PCP Internal Medicine
DX: M25.561 Pain in right knee (principal); E11.9 Type 2 diabetes mellitus without complications; I10 Essential (primary) hypertension; E78.5 Hyperlipidemia, unspecified; E66.9 Obesity, unspecified; Z68.31 Body mass index [BMI] 31.0-31.9, adult; Z79.84 Long term (current) use of oral hypoglycemic drugs; Z79.899 Other long term (current) drug therapy
CPT/HCPCS: 73562; 99282; 99283

== ENCOUNTER 2023-01-23 21:24 | Emergency (ER) | payer OTHER, SELFPAY ==
[2023-01-23 21:26] VITALS: BP 165/90; PULSE 116; O2SAT 98
[2023-01-23 21:28] VITALS: BP 151/87; PULSE 88; RESP 20; TEMP 37.1; O2SAT 96; BMI 30.5
--- NOTE | 2023-01-23 21:56 | PC.NURSE ---
Assumed care of pt. Pt states increased life stressors x 1-2 weeks, non compliance with medications prescribed for same, except for single dose of Venlafexine today which made her feel dizzy. Pt currently AxO x4, mild dizziness, no other symptoms at this time.
--- NOTE | 2023-01-23 23:12 | ED.ANXIETY ---
HPI - Anxiety General Chief Complaint: Anxiety Stated Complaint: anxiety after taking new prescription med, per ems Time Seen by Provider: 01/23/23 21:51 Source: patient Mode of arrival: ambulatory Limitations: no limitations History of Present Illness HPI narrative: Patient with history of anxiety been on different medications was on Zoloft before which was not working started on venlafaxine yesterday but patient feels still feeling anxious does not like to use a medication [place] any significant depression no SI or HI Related Data Home Medications Medication Instructions Recorded Confirmed amlodipine 2.5 mg-atorvastatin 10 1 tab PO DAILY 04/04/20 03/11/21 mg tablet atorvastatin 80 mg tablet 80 mg PO DAILY 04/04/20 03/11/21 glimepiride 2 mg tablet 2 mg PO DAILY 04/04/20 03/11/21 ibuprofen 600 mg tablet 600 mg PO Q8H PRN 04/04/20 03/11/21 lisinopril 10 mg tablet 10 mg PO DAILY 04/04/20 03/11/21 metformin 1,000 mg tablet 1,000 mg PO DAILY 04/04/20 03/11/21 montelukast 10 mg tablet 10 mg PO DAILY 04/04/20 03/11/21 omeprazole 20 mg capsule,delayed 20 mg PO DAILY 04/04/20 03/11/21 release rosuvastatin 40 mg tablet 40 mg PO DAILY 04/04/20 03/11/21 sertraline 50 mg tablet 50 mg PO DAILY 04/04/20 03/11/21 albuterol sulfate 90 mcg/actuation 2 puff inhalation QID 02/15/21 03/11/21 aerosol inhaler (ProAir HFA) multivitamin 1 tab PO DAILY 02/15/21 03/11/21 Previous Rx's Medication Instructions Recorded blood pressure monitor #1 ea 07/11/20 lorazepam 1 mg tablet 1 mg PO BEDTIME PRN anxiety #14 01/23/23 tabs Allergies Allergy/AdvReac Type Severity Reaction Status Date / Time seafood Allergy Severe Anaphylaxis Verified 01/23/23 21:28 Penicillins [PENICILLINS] Allergy Unknown UNKNOWN Verified 01/23/23 21:28 Review of Systems Review of Systems: Yes all other systems are reviewed and are negative PMFSH Past Medical History Medical History Steatosis, liver Asthma Depression DJD (degenerative joint disease) GERD (gastroesophageal reflux disease) Hyperlipidemia Hypertension Non-insulin dependent diabetes mellitus Morbid obesity Surgical History History of surgery of head Hx of hysterectomy Family History Family History Mother Cancer Father Asthma Arthritis Mental problems Sister No problems noted. Sister No problems noted. Sister Diabetes Asthma Sister Morbidly obese Brother No problems noted. Brother Diabetes Hypertension Son No problems noted. Son No problems noted. Daughter No problems noted. Daughter No problems noted. Social History Social History Alcohol intake: never Patient Tobacco Use Status: Never used Tobacco Smoked in Last 30 Days: No Use of substances other than those prescribed or required for medical reasons: No Advance Directives: No Advance Directives Information Provided: No Patient : No Physical Exam Vital Signs: Vital Signs: Last Vital Signs Temp 98.7 F 01/23/23 21:28 Pulse 88 01/23/23 21:28 Resp 20 01/23/23 21:28 BP 151/87 H 01/23/23 21:28 Pulse Ox 96 01/23/23 21:28 O2 Del Method Room Air 01/23/23 21:28 BMI result Body Mass Index 30.5 Appearance: Alert. Oriented X3. No acute distress. Anxious Eyes: PERRLA, No Nystagmus ENT: Pharynx normal. Oral Mucosa moist Neck: Normal inspection. Neck supple. CVS: Normal heart rate and rhythm. Pulses normal. Respiratory: No respiratory distress. Equal air entry bilateral, no wheezing/rales/rhonchi Abdomen: Soft and nontender. Bowel sounds are present, no mass palpable, no CVA tenderness Skin: Skin warm and dry. Normal skin color. Normal skin turgor. Extremities: No lower extremity edema. No calf tenderness Neuro: Oriented X 3. No motor deficit. No sensory deficit.No cerebellar signs , cranial nerves II-XII intact Medications Administered Discontinued Medications Generic Name Dose Route Start Last Admin Trade Name Freq PRN Reason Stop Dose Admin Hydroxyzine HCl 25 mg 01/23/23 23:19 01/23/23 23:57 Hydroxyzine Hcl 25 Mg Tablet PO 01/23/23 23:20 25 mg ONCE ONE Administration Medical Decision Making Medical Decision Making MDM Narrative: Patient with anxiety on Effexor rest continue same will give Ativan for severe anxiety follow with PCP and psychiatrist Discharge Plan Discharge Clinical Impression: Anxiety Patient Disposition: Home, Self-Care Instructions: Anxiety (ED) Additional Instructions: Continue taking medication as prescribed by your PCP for anxiety See psychiatrist Take lorazepam for severe anxiety every night as needed Prescriptions: New lorazepam 1 mg tablet 1 mg PO BEDTIME PRN (Reason: anxiety) Qty: 14 0RF No Action metformin 1,000 mg tablet 1,000 mg PO DAILY rosuvastatin 40 mg tablet 40 mg PO DAILY sertraline 50 mg tablet 50 mg PO DAILY atorvastatin 80 mg tablet 80 mg PO DAILY montelukast 10 mg tablet 10 mg PO DAILY lisinopril 10 mg tablet 10 mg PO DAILY glimepiride 2 mg tablet 2 mg PO DAILY omeprazole 20 mg capsule,delayed release(DR/EC) 20 mg PO DAILY amlodipine-atorvastatin 2.5-10 mg tablet 1 tab PO DAILY ibuprofen 600 mg tablet 600 mg PO Q8H PRN (DME) blood pressure monitor Kit See Rx Instructions .ROUTE .MEDSUPPLY Qty: 1 0RF Rx Instructions: As directed albuterol sulfate [ProAir HFA] 90 mcg/actuation HFA aerosol inhaler 2 puff inhalation QID multivitamin Tablet 1 tab PO DAILY Referrals: Slava Ng MD [Physician] - 1 week
[2023-01-23] MEDS: hydrOXYzine HCL 25 MG TABLET PO (23:57)
== END 2023-01-24 00:39 | disposition home or self-care (01) ==
PROVIDERS: Emergency Provider Internal Medicine
DX: F41.1 Generalized anxiety disorder (principal); Z79.899 Other long term (current) drug therapy
CPT/HCPCS: 99283; 99284

== ENCOUNTER 2023-05-23 08:38 | Outpatient (REF) | payer OTHER, SELFPAY ==
[2023-05-23 08:58] LABS: MANUAL DIFF FLAG NO
[2023-05-23 09:15] LABS: Basophils Percent Auto 0.4 % (0-2); Eosinophils Absolute Auto 0.3 X10*3/uL (0.0-0.4); Hematocrit 41.4 % (37.0-47.0); Imm Gran Abs Auto 0.03 X10*3/uL (0.00-0.03); Imm Gran Pct Auto 0.3 % (0.0-0.4); Lymphocytes Absolute Auto 2.7 X10*3/uL (1.2-4.9); Lymphocytes Percent Auto 24.9 % (20-40); Mean Corpuscular HGB Conc 33.8 g/dl (31.0-35.0); Mean Corpuscular Hemoglobin 29.3 pg (27.0-33.0); Mean Corpuscular Volume 86.6 fL (80.0-98.0); Mean Platelet Volume 8.9 fL (9.4-12.3); Monocytes Absolute Auto 0.6 X10*3/uL (0.1-1.2); Monocytes Percent Auto 5.9 % (2-11); Neutrophils Absolute Auto 7.1 x10*3/uL (2.0-8.3); Neutrophils Percent Auto 65.5 % (45-73); Platelet Count 559 X10*3/uL (160-400); Red Blood Count 4.78 X10*6/uL (4.20-5.50); Red Cell Distribution Width 11.9 % (11.0-16.0); White Blood Count 10.9 X10*3/uL (4.8-10.8)
[2023-05-23 09:20] LABS: Estimated Average Glucose 160 mg/dL; Hemoglobin A1c % 7.2 % (<6.0)
[2023-05-23 09:48] LABS: Alanine Aminotransferase 10 U/L (0-31); Albumin Level 4.2 g/dL (3.5-5.0); Alkaline Phosphatase 86 U/L (39-117); Anion Gap 13 (12-20); Aspartate Amino Transferase 14 U/L (5-31); Bilirubin Total 0.4 mg/dL (0.0-1.0); Blood Urea Nitrogen 10 mg/dL (9-16); Calcium 9.8 mg/dL (8.4-10.2); Carbon Dioxide 28 mmol/L (22-29); Chloride 105 mmol/L (96-108); Cholesterol 252 mg/dL (<200); Estimated Glomerular Filt Rate > 60; Glucose Random 168 mg/dL (60-115); HDL Cholesterol 45 mg/dL (>40); LDL Cholesterol Calculated 140 mg/dL (<100); Potassium 4.7 mmol/L (3.3-5.1); Sodium 141 mmol/L (135-145); Total Protein 7.8 g/dL (6.5-8.0); Triglycerides 339 mg/dL (<150)
[2023-05-23 10:09] LABS: Creatinine Urine 202.29 mg/dL; Microalbum/Creatinine Ratio Ur 4.4 ug/mg cr (<30)
[2023-05-23 10:09] LABS: Thyroid Stimulating Hormone 0.54 uIU/mL (0.32-4.0)
== END 2023-05-23 08:39 | disposition home or self-care (01) ==
LOC: HO.LAB 08:38
PROVIDERS: PCP Internal Medicine; Visit Provider Internal Medicine
DX: Z00.00 Encounter for general adult medical examination without abnormal findings (principal); E11.9 Type 2 diabetes mellitus without complications; I10 Essential (primary) hypertension; E78.00 Pure hypercholesterolemia, unspecified; F32.9 Major depressive disorder, single episode, unspecified
CPT/HCPCS: 36415; 80053; 80061; 82043; 82570; 83036; 84443; 85025

== ENCOUNTER 2023-09-22 12:01 | Outpatient (REF) | payer OTHER, SELFPAY ==
[2023-09-22 14:32] LABS: Estimated Average Glucose 157 mg/dL; Hemoglobin A1c % 7.1 % (<6.0)
[2023-09-22 14:40] LABS: Alanine Aminotransferase 17 U/L (0-31); Albumin Level 4.3 g/dL (3.5-5.0); Alkaline Phosphatase 83 U/L (39-117); Anion Gap 14 (12-20); Aspartate Amino Transferase 16 U/L (5-31); Bilirubin Total 0.3 mg/dL (0.0-1.0); Blood Urea Nitrogen 9 mg/dL (9-16); Calcium 9.6 mg/dL (8.4-10.2); Carbon Dioxide 26 mmol/L (22-29); Chloride 104 mmol/L (96-108); Cholesterol 261 mg/dL (<200); Estimated Glomerular Filt Rate > 60; Glucose Random 121 mg/dL (60-115); HDL Cholesterol 50 mg/dL (>40); LDL Cholesterol Calculated 155 mg/dL (<100); Potassium 4.3 mmol/L (3.3-5.1); Sodium 140 mmol/L (135-145); Total Protein 7.8 g/dL (6.5-8.0); Triglycerides 283 mg/dL (<150)
== END 2023-09-22 12:02 | disposition home or self-care (01) ==
LOC: HO.LAB 12:01
PROVIDERS: PCP Internal Medicine; Visit Provider Internal Medicine
DX: E11.9 Type 2 diabetes mellitus without complications (principal); E78.00 Pure hypercholesterolemia, unspecified; F32.4 Major depressive disorder, single episode, in partial remission; Z91.199 Patient's noncompliance with other medical treatment and regimen due to unspecified reason
CPT/HCPCS: 36415; 80053; 80061; 83036

== ENCOUNTER 2023-11-11 21:54 | Emergency (ER) | payer OTHER, SELFPAY ==
--- NOTE | ~2023-11-11 | XR_ITS ---
EXAMINATION: XR CERVICAL SPINE CLINICAL INFORMATION: Pain COMPARISON: None available. TECHNIQUE: 3 views of the cervical spine were obtained. FINDINGS: There is minimal retrolisthesis of C5 on C6. Alignment throughout the spine otherwise appears anatomic. Vertebral body heights are maintained. There is mild disc space narrowing of the lower lumbar spine with minimal endplate osteophyte formation. No acute fracture is seen. No prevertebral soft tissue swelling. XR/XR cervical spine 2V IMPRESSION: Minimal retrolisthesis of C5 on C6, which may be chronic in the setting of degenerative changes. Otherwise, no acute findings identified. Electronically signed by: Jasbir Dove MD 11/11/2023 11:14 PM EDT
[2023-11-11 22:01] VITALS: BP 153/76; BP 176/94; PULSE 102; PULSE 82; RESP 20; TEMP 36.5; O2SAT 97; BMI 31.3
[2023-11-12 00:19] VITALS: BP 129/84; PULSE 66; RESP 16; TEMP 36.7; O2SAT 99
[2023-11-12 00:55] LABS: MANUAL DIFF FLAG NO
[2023-11-12 00:57] LABS: Basophils Absolute Auto 0.1 X10*3/uL (0.0-0.2); Basophils Percent Auto 0.4 % (0-2); Eosinophils Absolute Auto 0.2 X10*3/uL (0.0-0.4); Eosinophils Percent Auto 1.4 % (0-4); Hematocrit 41.1 % (37.0-47.0); Hemoglobin 14.2 g/dl (12.0-16.0); Imm Gran Abs Auto 0.05 X10*3/uL (0.00-0.03); Imm Gran Pct Auto 0.4 % (0.0-0.4); Lymphocytes Percent Auto 21.6 % (20-40); Mean Corpuscular HGB Conc 34.5 g/dl (31.0-35.0); Mean Corpuscular Hemoglobin 30.3 pg (27.0-33.0); Mean Corpuscular Volume 87.6 fL (80.0-98.0); Mean Platelet Volume 9.1 fL (9.4-12.3); Monocytes Absolute Auto 0.8 X10*3/uL (0.1-1.2); Monocytes Percent Auto 5.5 % (2-11); Neutrophils Absolute Auto 9.9 x10*3/uL (2.0-8.3); Neutrophils Percent Auto 70.7 % (45-73); Platelet Count 496 X10*3/uL (160-400); Red Blood Count 4.69 X10*6/uL (4.20-5.50); Red Cell Distribution Width 11.9 % (11.0-16.0)
--- NOTE | 2023-11-12 01:03 | ED_ITS ---
HPI - General Adult General Chief complaint: Neck Pain/Injury Stated complaint: neck pain, bilat shoulder pain Time Seen by Provider: 11/12/23 00:55 Source: patient Limitations: no limitations History of Present Illness ED Provider: Savana Webster PA-C HPI narrative: 58-year-old female with history of diabetes, hypertension, hyperlipidemia and known degenerative disc disease presents with neck pain x2 weeks. Patient states her entire posterior neck hurts, the discomfort radiates upward over posterior head. Pain worse with movement of her neck. Patient denies preceding injury. Patient has been having intermittent headaches as well. Denies visual disturbance, dizziness, nausea, vomiting. Denies weakness of upper extremities, or paresthesias. There was no preceding injury prior to the onset of her discomfort. Patient has yet to follow up with her primary care provider. Related Data Home Medications ?Medication ?Instructions ?Recorded ?Confirmed amlodipine 2.5 mg-atorvastatin 10 1 tab PO DAILY 04/04/20 03/11/21 mg tablet atorvastatin 80 mg tablet 80 mg PO DAILY 04/04/20 03/11/21 glimepiride 2 mg tablet 2 mg PO DAILY 04/04/20 03/11/21 ibuprofen 600 mg tablet 600 mg PO Q8H PRN 04/04/20 03/11/21 lisinopril 10 mg tablet 10 mg PO DAILY 04/04/20 03/11/21 metformin 1,000 mg tablet 1,000 mg PO DAILY 04/04/20 03/11/21 montelukast 10 mg tablet 10 mg PO DAILY 04/04/20 03/11/21 omeprazole 20 mg capsule,delayed 20 mg PO DAILY 04/04/20 03/11/21 release rosuvastatin 40 mg tablet 40 mg PO DAILY 04/04/20 03/11/21 sertraline 50 mg tablet 50 mg PO DAILY 04/04/20 03/11/21 albuterol sulfate 90 mcg/actuation 2 puff inhalation QID 02/15/21 03/11/21 aerosol inhaler (ProAir HFA) multivitamin 1 tab PO DAILY 02/15/21 03/11/21 Previous Rx's ?Medication ?Instructions ?Recorded blood pressure monitor #1 ea 07/11/20 lorazepam 1 mg tablet 1 mg PO BEDTIME PRN anxiety #14 01/23/23 tabs ibuprofen 600 mg tablet 600 mg PO Q6H PRN pain #28 tabs 11/12/23 methocarbamol 750 mg tablet 750 mg PO Q8H pain #15 tabs 11/12/23 Allergies Allergy/AdvReac Type Severity Reaction Status Date / Time seafood Allergy Severe Anaphylaxis Verified 11/11/23 22:04 Penicillins [PENICILLINS] Allergy Unknown UNKNOWN Verified 11/11/23 22:04 Review of Systems 2 Review of Systems: Yes all other systems are reviewed and are negative Constitutional: Constitutional: Reports headache(s) Eyes: Eyes: Denies change in vision ENT: Denies dizziness and Reports headache(s) Cardiovascular: Cardiovascular: Denies chest pain and Denies dyspnea Respiratory: Respiratory: Denies dyspnea Gastrointestinal: Gastrointestinal: Denies nausea and Denies vomiting Musculoskeletal: Musculoskeletal: Denies tingling Neurologic: Denies dizziness, Reports headache(s), Denies tingling and Denies paresthesias [facility] Past Medical History Attestation statement: The following information was validated with the patient. Medical History Steatosis, liver Asthma Depression DJD (degenerative joint disease) GERD (gastroesophageal reflux disease) Hyperlipidemia Hypertension Non-insulin dependent diabetes mellitus Morbid obesity Surgical History History of surgery of head Hx of hysterectomy Family History Family History Mother Cancer Father Asthma Arthritis Mental problems Sister No problems noted. Sister No problems noted. Sister Diabetes Asthma Sister Morbidly obese Brother No problems noted. Brother Diabetes Hypertension Son No problems noted. Son No problems noted. Daughter No problems noted. Daughter No problems noted. Social History Social History Alcohol intake: never Patient Tobacco Use Status: Never used Tobacco Smoked in Last 30 Days: No Use of substances other than those prescribed or required for medical reasons: No Advance Directives: No Advance Directives Information Provided: Yes Patient : No Physical Exam ED Vital Signs: Vital Signs - 24 hr 11/11/23 22:01 11/12/23 00:19 Temperature 97.7 F 98.1 F Pulse Rate 82 66 Respiratory Rate 20 16 Blood Pressure 153/76 H 129/84 Pulse Oximetry 97 99 Oxygen Delivery Method Room Air Room Air BMI result Body Mass Index 31.3 Const Other: Alert, well in appearance Orientation/consciousness: patient oriented x3 Neck Other: Soft, supple, full range of motion, although discomfort elicited with range of motion Resp Effort & Inspection: normal respiratory effort Cardio Other: Normal peripheral perfusion Skin Other: Warm dry no rash Neuro General: patient oriented x3, gait normal, no focal motor deficits and CN's II- XI intact bilaterally Extrem Other: Strength 5/5 bilateral upper extremities with resistance Psych Other: Come cooperative Medications Administered Discontinued Medications Generic Name Dose Route Start Last Admin Trade Name Abiel PRN Reason Stop Dose Admin Ibuprofen 600 mg 11/12/23 01:02 11/12/23 01:24 Ibuprofen 600 Mg Tablet PO 11/12/23 01:03 600 mg ONCE ONE Administration Methocarbamol 750 mg 11/12/23 01:02 11/12/23 01:24 Methocarbamol 750 Mg Tablet PO 11/12/23 01:03 750 mg ONCE ONE Administration Medical Decision Making Medical Decision Making MDM Narrative: 58-year-old female with history of diabetes, hypertension, hyperlipidemia and known degenerative disc disease presents with neck pain x2 weeks. Patient states her entire posterior neck hurts, the discomfort radiates upward over posterior head. Pain worse with movement of her neck. Patient denies preceding injury. Patient has been having intermittent headaches as well. Denies visual disturbance, dizziness, nausea, vomiting. Denies weakness of upper extremities, or paresthesias. There was no preceding injury prior to the onset of her discomfort. Patient has yet to follow up with her primary care provider. Problem: Age, diabetes, hypertension and known DJD History: Per patient I have considered the following differential diagnoses: Arthritis, cervical strain, cervical radiculopathy, VAD, meningitis Plan: Screening labs and imaging obtained from triage, she has degenerative changes. Thought about VAD, however there was no preceding injury, and she is neurologically intact without visual changes. Regard to the headache, I feel that this is a tension type headache related to her neck pain. We will be sending with home care instructions involving muscle relaxant in the anti- inflammatory. She can follow up with her primary care provider. To note, she is also not having any radicular symptoms. She has a leukocytosis, unclear why, so I did think about meningitis, however there are no meningeal signs on exam, she is afebrile, she has not had preceding viral syndrome, and she has also had symptoms for 2 weeks. I have independently reviewed the following tests: Labs: Leukocytosis, not anemic, no electrolyte abnormality COMPARISON: None available. TECHNIQUE: 3 views of the cervical spine were obtained. FINDINGS: There is minimal retrolisthesis of C5 on C6. Alignment throughout the spine otherwise appears anatomic. Vertebral body heights are maintained. There is mild disc space narrowing of the lower lumbar spine with minimal endplate osteophyte formation. No acute fracture is seen. No prevertebral soft tissue swelling. XR/XR cervical spine 2V IMPRESSION: Minimal retrolisthesis of C5 on C6, which may be chronic in the setting of degenerative changes. Otherwise, no acute findings identified. Electronically signed by: Jasbir Dove MD 11/11/2023 11:14 PM EDT RP Lab Data 11/12/23 00:51 11/12/23 00:51 Labs: Lab Results 11/12/23 Range/Units 00:51 WBC 14.0 H (4.8-10.8) X10*3/uL RBC 4.69 (4.20-5.50) X10*6/uL Hgb 14.2 (12.0-16.0) g/dl Hct 41.1 (37.0-47.0) % MCV 87.6 (80.0-98.0) fL MCH 30.3 (27.0-33.0) pg MCHC 34.5 (31.0-35.0) g/dl RDW 11.9 (11.0-16.0) % Plt Count 496 H (160-400) X10*3/uL MPV 9.1 L (9.4-12.3) fL Immature Gran % (Auto) 0.4 (0.0-0.4) % Neut % (Auto) 70.7 (45-73) % Lymph % (Auto) 21.6 (20-40) % Hettinger % (Auto) 5.5 (2-11) % Eos % (Auto) 1.4 (0-4) % Baso % (Auto) 0.4 (0-2) % Lymph # (Auto) 3.0 (1.2-4.9) X10*3/uL [place]er # (Auto) 0.8 (0.1-1.2) X10*3/uL Eos # (Auto) 0.2 (0.0-0.4) X10*3/uL Baso # (Auto) 0.1 (0.0-0.2) X10*3/uL Abs Immat Gran (auto) 0.05 H (0.00-0.03) X10*3/uL Absolute Neuts (auto) 9.9 H (2.0-8.3) x10*3/uL Absolute Nucleated RBC 0.000 (0.0-0.012) X10*3/uL Nucleated RBC % (auto) 0.0 (0.0-0.2) /100WBC Sodium 141 (135-145) mmol/L Potassium 4.6 (3.3-5.1) mmol/L Chloride 104 (96-108) mmol/L Carbon Dioxide 27 (22-29) mmol/L Anion Gap 15 (12-20) BUN 8 L (9-16) mg/dL Creatinine 0.94 (0.5-1.4) mg/dL Estim Creat Clear Calc 51.9 Estimated GFR > 60 Random Glucose 148 H (60-115) mg/dL Calcium 10.0 (8.4-10.2) mg/dL Total Bilirubin 0.3 (0.0-1.0) mg/dL AST 14 (5-31) U/L ALT 14 (0-31) U/L Alkaline Phosphatase 77 (39-117) U/L Total Protein 7.6 (6.5-8.0) g/dL Albumin 4.4 (3.5-5.0) g/dL Discharge Plan Discharge Clinical Impression: Cervical arthritis Patient Disposition: Home, Self-Care Additional Instructions: The x-ray revealed that you have arthritic changes of her cervical spine. See home care instructions. Use the muscle relaxant as needed, this may cause drowsiness, do not drive or operate machinery. Take the ibuprofen as directed, 600 mg taken every 6 hours with food. This is an anti-inflammatory. Follow up with your primary care provider as needed. Prescriptions: New methocarbamol 750 mg tablet 750 mg PO Q8H Qty: 15 0RF ibuprofen 600 mg tablet 600 mg PO Q6H PRN (Reason: pain) Qty: 28 0RF No Action lorazepam 1 mg tablet 1 mg PO BEDTIME PRN (Reason: anxiety) Qty: 14 0RF metformin 1,000 mg tablet 1,000 mg PO DAILY rosuvastatin 40 mg tablet 40 mg PO DAILY sertraline 50 mg tablet 50 mg PO DAILY atorvastatin 80 mg tablet 80 mg PO DAILY montelukast 10 mg tablet 10 mg PO DAILY lisinopril 10 mg tablet 10 mg PO DAILY glimepiride 2 mg tablet 2 mg PO DAILY omeprazole 20 mg capsule,delayed release(DR/EC) 20 mg PO DAILY amlodipine-atorvastatin 2.5-10 mg tablet 1 tab PO DAILY ibuprofen 600 mg tablet 600 mg PO Q8H PRN (DME) blood pressure monitor Kit See Rx Instructions .ROUTE .MEDSUPPLY Qty: 1 0RF Rx Instructions: As directed albuterol sulfate [ProAir HFA] 90 mcg/actuation HFA aerosol inhaler 2 puff inhalation QID multivitamin Tablet 1 tab PO DAILY Interventions: ED Discharge Assessment Last Done: 11/12/23 01:28 Discharge Date/Time: 11/12/23 01:29 Print Language: [place]
[2023-11-12 01:10] LABS: Alanine Aminotransferase 14 U/L (0-31); Albumin Level 4.4 g/dL (3.5-5.0); Alkaline Phosphatase 77 U/L (39-117); Anion Gap 15 (12-20); Aspartate Amino Transferase 14 U/L (5-31); Bilirubin Total 0.3 mg/dL (0.0-1.0); Blood Urea Nitrogen 8 mg/dL (9-16); Carbon Dioxide 27 mmol/L (22-29); Chloride 104 mmol/L (96-108); Creatinine Clr Calc Pharmacy 51.9; Estimated Glomerular Filt Rate > 60; Glucose Random 148 mg/dL (60-115); Potassium 4.6 mmol/L (3.3-5.1); Sodium 141 mmol/L (135-145); Total Protein 7.6 g/dL (6.5-8.0)
[2023-11-12 01:23] VITALS: BP 124/88; PULSE 89; RESP 16; TEMP 36.7; O2SAT 98
[2023-11-12] MEDS: methocarbamoL 750 MG TABLET PO (01:24)
[2023-11-12] MEDS: Ibuprofen 600 MG TABLET PO (01:24)
[2023-11-12 01:28] VITALS: BP 124/88; PULSE 89; RESP 16; TEMP 36.7; O2SAT 98
== END 2023-11-12 01:29 | disposition home or self-care (01) ==
PROVIDERS: Emergency Provider Emergency Medicine
DX: M47.892 Other spondylosis, cervical region (principal); R51.9 Headache, unspecified; M54.2 Cervicalgia; E11.9 Type 2 diabetes mellitus without complications; I10 Essential (primary) hypertension; E78.5 Hyperlipidemia, unspecified; Z79.02 Long term (current) use of antithrombotics/antiplatelets; Z79.899 Other long term (current) drug therapy
CPT/HCPCS: 36415; 72040; 80053; 85025; 99283; 99284